=== PATIENT | female | born 1970 | race Caucasian/White ===

== ENCOUNTER 2016-09-24 05:15 | Day surgery (SDC) | payer BC ==
[2016-09-20 14:21] LABS: HEMATOCRIT 41.9 % (36.0-48.0); HEMOGLOBIN 14.1 g/dL (12.0-16.0)
--- NOTE | ~2016-09-24 | OP ---
Record Of Operation [facility] [address] [place]. [address] NAME: PATI SCHROEDER : 70 STATUS : [facility]#: [id number] AGE: 46 ADM/REG DATE : 09/24/16 MR#: [id number] REPORT SERV DATE: 09/25/16 DICTATED BY: ULISES RUIZ II DATE: 09/25/16 REPORT STATUS : Draft TRANSCRIBED BY: MODPaddy DATE: 09/25/16 DATE OF PROCEDURE: 09/24/2016 PREOPERATIVE DIAGNOSES: 1. L4-5 severe degenerative disk disease, L5-S1 moderate degenerative disk disease. 2. Large L5-S1 herniated nucleus pulposus. 3. Severe left lower extremity radiculopathy. POSTOPERATIVE DIAGNOSES: 1. L4-5 severe degenerative disk disease, L5-S1 moderate degenerative disk disease. 2. Large L5-S1 herniated nucleus pulposus. 3. Severe left lower extremity radiculopathy. PROCEDURES: 1. Left L5-S1 microdiskectomy. 2. Use of the microscope and stereotactic spinal imaging. SURGEON: Ulises Ruiz M.D. FLUIDS: 1400 mL LR. ESTIMATED BLOOD LOSS: 15 mL. DRAINS: None. COMPLICATIONS: None. ANTIBIOTIC: Preoperatively. 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 Unfortunately she does have a back pain history. She has now developed a severe radiculopathy down the left leg consistent with an S1 radiculopathy with associated weakness and reflex changes. Her pain was severe. We discussed the pros and cons of continuing nonoperative care versus surgery. We discussed the risks which include, but are not limited to, in other fragment of disk coming out of the disk space. We also discussed the risk of infection, abscess, CSF leak as well as a small chance of pulmonary embolus. DESCRIPTION OF PROCEDURE: After informed consent was obtained, the patient was brought to the operating room at her request, and general anesthesia achieved. She was placed in the prone position and the back was prepped and draped in a sterile fashion. Stereotactic spinal pin was placed into the iliac crest on the right. The intraoperative CT scan was completed. The stereotactic guidance was then used throughout the case. The minimally invasive incision was now performed and the 22 mm tubular retractor was placed and the microscope brought into place. Under microscopic visualization, the laminotomy was performed with the high-speed bur and the Kerrison rongeurs and the curettes. The ligamentum flavum was released and partially removed followed by identification of the Record Of Operation [place] [id number] [place]. [address] NAME: PATI SCHROEDER : 70 STATUS : [facility] PAT#: [id number] AGE: 46 ADM/REG DATE : 09/24/16 MR#: [id number] REPORT SERV DATE: 09/25/16 DICTATED BY: ULISES RUIZ II DATE: 09/25/16 REPORT STATUS : Draft TRANSCRIBED BY: ETHEL DATE: 09/25/16 severely compressed S1 nerve root. Several large fragments of disc were now removed from the canal to decompress the S1 nerve root. Irrigation was now performed. The S1 nerve root was now found to be very free. After hemostasis was confirmed standard closure was performed. The patient was extubated and transferred to PACU in stable condition. I saw the patient in phase 2 recovery, where she was stable and comfortable, and desiring to go home. We will see her back in the office regarding return to work. SIMRAN/ETHEL Ulises Ruiz II, M.D. / [id number] CC: Libby Moran II, M.D.
[~2016-09-24 05:15] MED LIST: ENDOCET1 TAB PO; LIOR10 PO; NEUR300 PO; REST15 PO
== END 2016-09-24 14:51 | disposition home or self-care (01) ==
LOC: SDC 05:15
PROVIDERS: Orthopaedic Surgery
PROC: 01NB0ZZ Release Lumbar Nerve, Open Approach (ICD-10-PCS; 2016-09-24)
PROC: 0SB20ZZ Excision of Lumbar Vertebral Disc, Open Approach (ICD-10-PCS; principal; 2016-09-24 06:45)
DX: M51.17 Intervertebral disc disorders with radiculopathy, lumbosacral region (principal); F41.9 Anxiety disorder, unspecified; F32.9 Major depressive disorder, single episode, unspecified; L40.9 Psoriasis, unspecified; Z79.891 Long term (current) use of opiate analgesic; Z79.899 Other long term (current) drug therapy; Z98.51 Tubal ligation status
CPT/HCPCS: 84703; 85014; 85018; 88304; 88311; A9270-GY; J0690; J1030; J1170; J1885; J2250; J2405; J2550; J2710; J3010